=== PATIENT | male | born 1965 | race Caucasian/White ===

== ENCOUNTER 2018-06-13 12:27 | Observation (INO) | payer MEDICARE ==
[~2018-06-13] VITALS: Ht 185.4 cm; Wt 64.0 kg
--- OUTSIDE RECORDS SUMMARY | 2018-06-13 17:21 | XMS REPORT | Continuity of Care Document ---
Author Author [facility] Interface Address Unknown Phone Unavailable Problems Problem Status Onset Date Classification Date Reported Comments Source CP Active 06/04/2018 [place] Medications Medication Details Route Status Patient Instructions Ordering Provider Order Date Source Allergies, Adverse Reactions, Alerts Substance Category Reaction Severity Reaction type Status Date Reported Comments Source penicillin Assertion Drug allergy Active OPID [place] Immunizations Immunization Date Given Site Status Last Updated Comments Source Results Order Name Results Value Reference Range Date Interpretation Comments Source Chest Pulmonary Embolism CTA Chest Pulmonary Embolism CTA CTA PULMONARY ARTERIES: HISTORY: Chest pain for 2 months, worse today. Elevated d-dimer. TECHNIQUE: Multislice helical images of the chest were done during IV contrast bolus. Sagittal and coronal reconstructions and MIP tomograms were done. DLP 321.49 mGycm. ANGIOGRAPHIC FINDINGS: There is no evidence of pulmonary embolus. The central pulmonary arteries are normal caliber. The main pulmonary artery measures 1.9 cm in diameter. There are no other significant pulmonary or systemic vascular abnormalities. NON-ANGIOGRAPHIC FINDINGS: There is marked centrilobular emphysema throughout the lungs. There is a plaque-like pleural-based mass in the medial left apical region measuring about 5 cm in diameter and 2 cm in thickness, developing since a previous chest CT on 09/07/2008. This has lobular margins in the adjacent lung parenchyma. There is mild groundglass opacity in the anterior basilar segment of the left lower lobe. There is linear and stellate scarring in the right apical region with calcifications, with more stranding compared to the previous study. There is a 1.2 cm spiculated opacity in the medial right apical region and another 1.3 cm pleural-based spiculated opacity in the posterior right upper lobe. There is a 1.5 cm ovoid nodule in the right lower lobe at the junction of the superior segment and basilar segments. A 3 mm nodule is seen in the lateral segment of the right middle lobe. All the nodules have developed since the previous CT. There is no mediastinal mass or significant lymph node enlargement. There are no significant osseous abnormalities. There are no significant abnormalities in the the visible upper abdomen. IMPRESSION: 1. No evidence of pulmonary embolus. 2. 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 3. Multiple new small nodules in the right lung, also likely neoplastic. 4. Severe emphysema. JONATHAN POLLACK-SIERRA 06/04/2018 - - Read by: Chano Mishra MD Dictated Date/time: 06/04/18 20:16 Electronically Signed by: Chano Mishra MD 06/04/18 20:30 FINAL REPORT [facility] Vital Signs Vital Sign Value Date Comments Source Encounters Location Location Details Encounter Type Encounter Number Reason For Visit Attending Provider ADM Date DC Date Status Source [facility] - [facility] [id number] Deonte Tan 01/22/2014 01/23/2014 AIDEN Fernandez Procedures Procedure Code Date Perfomer Comments Source
--- OUTSIDE RECORDS SUMMARY | 2018-06-13 17:21 | XMS REPORT | Summary of Care ---
Author Organization Unknown Address Unknown Phone Unavailable Encounter [facility]) [id number] Date(s): 01/22/14 - 01/22/14 [facility] Outpatient Imaging - [address] [address] [place] Discharge Disposition: Home Physician Attending: Deonte Tan MD Reason for Visit 724.2 - [place] Problem List No data available for this section Allergies, Adverse Reactions, Alerts Substance Reaction Severity Status penicillin Active Medications No data available for this section Medications Administered During Your Visit No data available for this section Immunizations No data available for this section
--- OUTSIDE RECORDS SUMMARY | 2018-06-13 17:21 | XMS REPORT ---
[facility] Address Unknown Phone Unavailable Care Team Providers Care Ice Guard Tester Name Role Phone Geeta KING Unavailable Unavailable Problems This patient has no known problems. Allergies, Adverse Reactions, Alerts This patient has no known allergies or adverse reactions. Medications This patient has no known medications. Results Test Description Test Time Test Comments Text Results Atomic Results Result Comments CHEST SINGLE (PORTABLE) [place] [address] Patient Name: SRINIVAS SCHILLING MR #: [id number] : 1965 Age/Sex: 51/M Req #: [id number] Adm Physician: Ordered by: JOCELYN KING MD Report #: [id number] Location: ER Room/Bed: Procedure: [id number] DX/CHEST SINGLE (PORTABLE) Exam Date: 01/21/17 Exam Time: 2034 REPORT STATUS: Signed EXAMINATION: CHEST SINGLE (PORTABLE) INDICATION: Wheezing. COMPARISON: 07/16/2016 FINDINGS: TUBES and LINES: None. LUNGS: The lungs are hyperinflated with upper lobe lucency Right upper lobe calcified granuloma and scarring is stable. There is no evidence of pneumonia or pulmonary edema. PLEURA: No pleural effusion or pneumothorax. HEART AND MEDIASTINUM: The cardiomediastinal silhouette is unremarkable. BONES AND SOFT TISSUES: No acute osseous lesion. Soft tissues are unremarkable. UPPER ABDOMEN: No free air under the diaphragm. IMPRESSION: No acute thoracic abnormality. COPD changes are stable. Signed by: Dr. Aiden Mayo M.D. on 01/21/2017 8:53 PM Dictated By: AIDEN GORDILLO MD 52 Transcribed By: LINDSEY on 01/21/172052 COPY TO: JOCELYN KING MD
--- NOTE | 2018-06-13 17:30 | NUR ---
Patient walked into unit with his as a direct admission and with a diagnosis chest pain and dyspnea. Initial assessment, family history, and admission history obtained by patient and his . Plan of care discussed. IV to the Right AC started. Patient tolerated well. Patient was told to be NPO for procedure.
[2018-06-13 17:40] VITALS: BP 137/79
[2018-06-13] MEDS ORDERED: HYDROMORPHONE 1MG/1ML INJ IV PRN (17:45)
[2018-06-13] MEDS ORDERED: HYDROCODONE/APAP 10MG-325MG TAB PO PRN (17:45)
--- NOTE | 2018-06-13 17:53 | NUR ---
Ricco RT notified of EKG and Neb orders.
[2018-06-13 17:58] VITALS: BP 137/79
[2018-06-13] MEDS ORDERED: ALBUTEROL SULF 0.083% NEB SOLN 3 ML NEB NEB PRN (18:00)
[2018-06-13] MEDS ORDERED: HYDROMORPHONE 2MG/ML 2 MG/ML ML IV PRN ×2 (18:00→21:30)
[2018-06-13 18:22] LABS: BASOPHILS # (AUTO) 0.1 (0.0-0.1); BASOPHILS % 0.7 % (0.0-1.0); EOSINOPHILS # (AUTO) 0.6 (0.0-0.4); EOSINOPHILS % 6.1 % (0.0-6.0); HEMOGLOBIN 13.9 g/dL (14.0-18.0); LYMPHOCYTES # (AUTO) 3.9 (1.0-3.2); LYMPHOCYTES % 42.9 % (18.0-39.1); MEAN CORPUSCULAR HEMOGLOBIN 31.7 pg (28-32); MEAN CORPUSCULAR HGB CONC 34.8 g/dL (31-35); MEAN CORPUSCULAR VOLUME 91.1 fL (81-99); MONOCYTES # (AUTO) 0.5 (0.2-0.8); MONOCYTES % 5.6 % (4.4-11.3); NEUTROPHILS % 44.5 % (38.7-80.0); PLATELET COUNT 287 x10e3/uL (140-360); RED BLOOD COUNT 4.39 x10e6/uL (4.3-5.7); RED CELL DISTRIBUTION WIDTH 13.8 % (11.7-14.4)
[2018-06-13 18:32] LABS: INR 0.83; PROTHROMBIN TIME 12.2 seconds (11.9-14.5)
[2018-06-13 18:33] LABS: PARTIAL THROMBOPLASTIN TIME 32.6 seconds (23.8-35.5)
[2018-06-13 18:41] LABS: ALANINE AMINOTRANSFERASE 16 IU/L (0-55); ALBUMIN 3.7 g/dL (3.5-5.0); ALBUMIN/GLOBULIN RATIO 1.7 (0.8-2.0); ALKALINE PHOSPHATASE 69 IU/L (40-150); ANION GAP 12.6 mmol/L (8-16); BLOOD UREA NITROGEN 20 mg/dL (7-26); BUN/CREATININE RATIO 24 (6-25); CARBON DIOXIDE 26 mmol/L (22-29); CHLORIDE 105 mmol/L (98-107); CREATININE, SERUM 0.82 mg/dL (0.72-1.25); EST GLOMERULAR FILTRATION RATE > 60 ML/MIN (60-); GLUCOSE 78 mg/dL (74-118); POTASSIUM 4.6 mmol/L (3.5-5.1); SODIUM 139 mmol/L (136-145)
[2018-06-13 18:43] VITALS: BP 137/79
[2018-06-13] MEDS ORDERED: IBUPROFEN400 MG PO (19:23)
[2018-06-13] MEDS ORDERED: MOBIC7.5 MG PO (19:23)
[2018-06-13] MEDS ORDERED: ALBUTEROL0.63 MG/3 (19:23)
[2018-06-13] MEDS ORDERED: PRILOSEC OTC20 MG (19:23)
[2018-06-13] MEDS ORDERED: PROAIR HFA INH8.5 GM (19:23)
[2018-06-13] MEDS ORDERED: PREDNISONE20 MG PO (19:23)
[2018-06-13] MEDS ORDERED: ADVAIR 250-501 EACH (19:23)
[2018-06-13] MEDS ORDERED: SODIUM CHLORIDE 0.9% 50ML 50 ML ONE (19:24)
[2018-06-13] MEDS ORDERED: IOPAMIDOL 370 MG/ML 200 ML INFUS..BTL INJ ONE (19:24)
[2018-06-13 19:45] VITALS: BP 140/82
[2018-06-13 20:00] VITALS: BP 140/82
[2018-06-13] MEDS ORDERED: ALBUTEROL SULFATE HFA 8GM INHALATION AEROSOL INH PRN (21:00)
[2018-06-13] MEDS ORDERED: PROMETHAZINE 12.5MG/ NACL 0.9% 12.5 MG/50 ML BAG IV PRN (21:00)
[2018-06-13] MEDS ORDERED: METHYLPREDNISOLONE SOD SUCC 40 MG/ML VIAL 1ML IV SCH (21:00)
[2018-06-13] MEDS ORDERED: ZOLPIDEM TARTRATE 10 MG TAB PO PRN (21:00)
--- NOTE | 2018-06-13 22:00 | NUR ---
Pt left AMA. Form signed and explained to pt need to stay for medical treatment. Pt refused meds and stated that he was "upset with Dr. Borjas and he has noreason to stay here if he is not getting pain meds. Dr. Borjas talked to me like I was a pain junkie." Pt walked and was escorted to pt berry picker area and took pt home. informed of pt leaving AMA.
--- NOTE | 2018-06-13 22:28 | History and Physical ---
CHIEF COMPLAINT: Chest pain and abnormal CT scan. HISTORY OF PRESENT ILLNESS: The patient is a 52-year-old man with a history of COPD and emphysema since his late 30s. About 10 years ago, he had problems with recurrent pneumothoraces. He required chest tubes both sides as well as thoracoscopy and pleurodesis on the left side. Patient also had a pleural-based mass about 7 or 8 years ago. The mass was biopsied at that time and was felt to be benign. Over past 3 to 4 months, he has noticed worsening left-sided chest pain. It is mostly in the left upper anterior chest. He states he has gone to several doctors and finally went to an emergency department in [facility]. A repeat CT scan at that time showed an enlarged left pleural-based mass measuring 5 cm in diameter and 2 cm in thickness. There were also several possible nodular lesions in the right upper lung. He also had severe emphysema. PAST SURGICAL HISTORY 1. Status post pleurodesis and thoracoscopy. 2. Status post chest tubes bilaterally. 3. Status post biopsy of a pleural-based mass 6 or 7 years ago. PAST MEDICAL HISTORY: Emphysema and COPD. SOCIAL HISTORY: The patient was a prior smoker. He is not an active drinker. He lives in the [place] part of [place]. He is here with his , who works in a doctor's office. FAMILY HISTORY: Noncontributory. ALLERGIES: THERE WERE NO KNOWN DRUG ALLERGIES. REVIEW OF SYSTEMS: Patient denies any recent weight loss. There are no fevers. He has no headaches. He does note left anterior chest pain. It is very severe and some times wakes him up from sleep. He also reports some dyspnea on exertion. He has no abdominal pain. He has no nausea or vomiting. He denies any focal neurologic complaints. PHYSICAL EXAMINATION VITAL SIGNS: The patient is afebrile. The blood pressure is 140/82 and the pulse is 80. Saturation is 94%. HEENT: Shows no facial swelling or erythema. The nasal mucosa is normal. The oropharynx is normal. LYMPHATIC: Shows no submandibular, cervical, or supraclavicular adenopathy. NECK: Examination of the neck shows no JVD or thyromegaly. There is no nuchal rigidity. CARDIAC: Reveals regular rate and rhythm with normal S1 and S2. There are no murmurs or rubs. RESPIRATORY: Auscultation of lungs reveals decreased breath sounds bilaterally. There is a prolonged expiratory phase. ABDOMEN: Soft and nontender. There is no rebound or guarding. EXTREMITIES: Shows no leg edema or calf tenderness. There is no cyanosis or clubbing. SKIN: No rashes. NEUROLOGIC: Exam shows no focal abnormalities. IMPRESSION 1. Left pleural-based mass with associated chest pain. 2. Severe COPD and emphysema. 3. History of pneumothoraces. PLAN 1. CT scan of the chest. 2. Pain control. 3. Solu-Medrol and bronchodilators. 4. Possible CT-guided lung biopsy. Job#: [id number] RTY
--- NOTE | 2018-06-13 23:37 | Diagnostic Imaging Report ---
EXAM: CT Chest WITH contrast 06/13/2018 5:41 PM INDICATION: DYSPNEA/CP COMPARISON: None TECHNIQUE: Chest was scanned utilizing a multidetector helical scanner from the lung apex through the level of the adrenal glands without administration of IV contrast. Coronal and sagittal reformations were obtained. Routine protocol was performed. IV CONTRAST: 100 mL of Isovue-370 COMPLICATIONS: None RADIATION DOSE: Total DLP: 469.05 mGy*cm Estimated effective dose: (DLP x 0.014 x size factor) mSv Dose modulation, iterative reconstruction, and/or weight based adjustment of the mA/kV was utilized to reduce the radiation dose to as low as reasonably achievable. FINDINGS: LINES/ TUBES: None. LUNGS AND AIRWAYS: Severe centrilobular emphysematous changes. Multiple spiculated nodules, including (series 3) * Right upper lobe partially calcified likely area of scarring (image 27) * Right upper lobe 1.9 cm spiculated nodule (image 34) * Right upper lobe 0.4 cm and 0.6 cm groundglass nodule (image 74 and 75) * Right middle lobe 0.5 cm nodule (image 96) * Right lower lobe 2.2 cm nodule (image 84) with adjacent groundglass nodules measuring up to 1.2 cm (image 80) * Left upper lobe 1 cm spiculated nodule (image 57) Scattered calcified granulomas. PLEURA: Left upper lobe approximately 5.3 x 2.7 x 5.8 cm pleural-based mass (for example on series 2 image 29) with cortical erosion of the underlying left fourth rib (coronal image 69) with extension into the region of the left T3-T4 neural foramen (series 2 image 28). HEART AND MEDIASTINUM: The thyroid gland is normal. No mediastinal, hilar or axillary lymphadenopathy. The heart is normal in size.. There is no pericardial effusion. UPPER ABDOMEN: A few scattered subcentimeter hypodensities in the liver are too small to characterize. BONES: There are degenerative changes in the thoracic spine. See above regarding left upper lobe pleural mass. SOFT TISSUES: Unremarkable. IMPRESSION: Left upper lobe pleural-based mass with erosion of the underlying rib and extension to the adjacent neural foramen concerning for malignancy. Consider IR consultation for tissue sampling. Multiple pulmonary nodules measuring up to 2.2 cm. Severe emphysema. Signed by: DR. Juan Jose Mauricio MD on 06/13/2018 11:34 PM
[2018-06-14] MEDS ORDERED: SALMETEROL/FLUTICASONE 250/50 INH SCH (07:00)
[2018-06-14] MEDS ORDERED: PANTOPRAZOLE SOD 40 MG TABEC PO SCH (07:30)
[2018-06-14] MEDS ORDERED: NON-FORMULARY MEDICATION (Omeprazole Magnesium (Prilosec Otc) 40 MG) SCH (09:00)
[2018-06-14] MEDS ORDERED: LIDOCAINE 5% PATCH TP SCH (22:00)
== END 2018-06-13 20:15 | disposition left against medical advice (07) ==
LOC: IMCU 17:17
PROVIDERS: ADMIT Internal Medicine Critical Care Medicine; ATTEND Internal Medicine Critical Care Medicine
DX: R07.89 Other chest pain (principal); R91.8 Other nonspecific abnormal finding of lung field; J44.9 Chronic obstructive pulmonary disease, unspecified; Z88.0 Allergy status to penicillin
CPT/HCPCS: 36415; 71260; 80053; 85025; 85610; 85730; G0378; J1170; Q9967; J2920

== ENCOUNTER → 2018-06-25 | Outpatient (CLI) | payer MEDICARE ==
[~2018-06-25] MED LIST: ADVAIR 250-501 EACH; ALBUTEROL0.63 MG/3; FENTANYL CITRATE/PF 100MCG/2 ML INJ ONE; IBUPROFEN400 MG PO; MIDAZOLAM HCL 2 MG/2 ML VIAL ONE; MOBIC7.5 MG PO; PREDNISONE20 MG PO; PRILOSEC OTC20 MG; PROAIR HFA INH8.5 GM
--- NOTE | 2018-06-25 13:12 | Diagnostic Imaging Report ---
EXAMINATION: CHEST XRAY POST PROCEDURE INDICATION: Status post lung biopsy. COMPARISON: CT Chest 06/13/2018. FINDINGS: TUBES and LINES: None. LUNGS/PLEURA: No evidence of pneumothorax. Left upper lobe opacity corresponds to known mass. Other nodular opacities bilaterally are better characterized on chest CT from 06/13/2018. Scarring in the right upper lung. No evidence of pneumonia or pulmonary edema. HEART AND MEDIASTINUM: The cardiomediastinal silhouette is unremarkable. BONES AND SOFT TISSUES: No acute osseous abnormality. UPPER ABDOMEN: No free air under the diaphragm. IMPRESSION: No evidence of pneumothorax status post biopsy of left upper lobe pulmonary mass. Other bilateral pulmonary opacities are better characterized on CT chest from 06/13/2018. Signed by: Dr. Toya Cardozo MD on 06/25/2018 1:09 PM
--- NOTE | 2018-06-25 15:02 | Diagnostic Imaging Report ---
EXAMINATION: CHEST XRAY POST PROCEDURE INDICATION: Status post lung biopsy. COMPARISON: CT Chest 06/13/2018, Chest radiograph 06/25/2018 at 1230 PM. FINDINGS: TUBES and LINES: None. LUNGS/PLEURA: No evidence of pneumothorax. Left upper lobe opacity corresponds to known mass. Other nodular opacities bilaterally are better characterized on chest CT from 06/13/2018. Scarring in the right upper lung. No evidence of pneumonia or pulmonary edema. HEART AND MEDIASTINUM: The cardiomediastinal silhouette is unremarkable. BONES AND SOFT TISSUES: No acute osseous abnormality. UPPER ABDOMEN: No free air under the diaphragm. IMPRESSION: No evidence of pneumothorax status post biopsy of left upper lobe pulmonary mass. Other bilateral pulmonary opacities are better characterized on CT chest from 06/13/2018. Signed by: Dr. Toya Cardozo MD on 06/25/2018 2:59 PM
--- NOTE | 2018-06-30 15:30 | Diagnostic Imaging Report ---
CT guided left upper lobe lung mass biopsy Comparison: CT Chest 06/13/2018. Consent: The nature of the procedure, including its risks, benefits and alternatives was explained to the patient who understood and gave consent. Operators: Toya Cardozo MD ANESTHESIA: Intravenous conscious sedation was administered by radiology nursing. Continuous hemodynamic and respiratory monitoring was performed, including the use of pulse oximetry. Sedation start time: 1055 AM; Sedation end time: 1140 AM Total sedation time: 45 minutes Medications: 10 cc of 1% subcutaneous lidocaine Fentanyl and Versed per nursing administration records TECHNIQUE/FINDINGS: The patient was placed in the prone position. Scans were obtained through the left upper lung which demonstrated a left upper lobe pleural based pulmonary mass. Note is also made of multiple right upper lobe pulmonary nodules and severe emphysematous changes of the lungs. A clear path to the left upper lobe lesion was identified. The skin of the left upper back was marked, prepped, draped and anesthetized with 1% lidocaine. With CT guidance, a 19-gauge needle was inserted percutaneously into the left upper lobe mass with a single pleural puncture. Subsequently, three 21 gauge fine needle aspirates were obtained. With a 20-gauge core biopsy device, four core biopsies were obtained with CT guidance. Samples were provided to Pathology who confirmed sample adequacy. Repeat CT demonstrated no evidence of pneumothorax. The introducer needle was removed. Sterile bandage was placed and the patient was immediately positioned in supine position on the stretcher for post procedural recovery. CONDITION/COMPLICATIONS: No immediate complication. FINDINGS: Left upper lobe pleural based pulmonary mass status post CT guided biopsy. IMPRESSION: CT guided fine needle aspiration and core biopsy of left upper lobe pulmonary mass as above. Post procedural chest radiographs will be obtained to evaluate for pneumothorax. Signed by: Dr. Toya Cardozo MD on 06/30/2018 3:27 PM
== END ==
LOC: CT 09:05
PROVIDERS: ATTEND Specialist
DX: R91.8 Other nonspecific abnormal finding of lung field (principal)
CPT/HCPCS: 10009; 32405; 71045; 88172; 88173; 88305; 88342; J2250; 99152; 99153